=== PATIENT | female | born 1945 | race Caucasian/White ===

== ENCOUNTER → 2017-02-08 | Outpatient (CLI) | payer MEDICARE, BC ==
[2017-02-08 15:25] LABS: Blood Urea Nitrogen 11 mg/dL (7-17); Non-African American GFR(MDRD) >60 (>60 ml/min/1.73 sqM)
--- NOTE | 2017-02-10 10:23 | CT ---
EXAMINATION TYPE: CT angio abdomen pelvis DATE OF EXAM: 02/08/2017 COMPARISON: 11/24/2016 HISTORY: Leak of aortic bifurcation. CT DLP: 872.6 mGycm CONTRAST: CTA thoracic and abdominal aorta with 3-D reconstruction is performed without Oral Contrast and witho ut and with IV Contrast, patient injected with 100 mL of Omnipaque 350. Contrast CTA of the abdominal aorta was performed from the lung bases through the base of the pelvis. 3-D reconstruction imaging obtained at a separate workstation. Abdominal AORTA: Aortoiliac stent graft is again noted to be in place. At the site of prior endoleak there is been interval coiling. Endoleak is no longer visible. Stent graft is otherwise stable in [place]. Abdominal aortic aneurysm currently measures 6.2 cm x 6.4 cm versus 6.2 x 6.4 cm previously. Branch vessels are patent and well-perfused. LIVER/GB- No significant abnormality is seen. Cholecystectomy clips are in place. PANCREAS- No significant abnormality is seen. SPLEEN- No significant abnormality is seen. ADRENALS- No significant abnormality is seen. KIDNEYS/BLADDER- No significant abnormality is seen. BOWEL- No Significant abnormality GENITAL ORGANS: No gross abnormality seen. LYMPH NODES- No greater than 1cm abdominal or pelvic lymph nodes areappreciated. OSSEOUS STRUCTURES- No significant abnormality is seen. OTHER- No significant abnormality is seen. IMPRESSION- 1. Resolution of previously noted endoleak. No evidence for new endoleak. Aortic stent graft as noted .
== END | disposition home or self-care (01) ==
LOC: RADCTMAIN 14:24
PROVIDERS: ATTEND Physician Assistant
DX: T82.330D Leakage of aortic (bifurcation) graft (replacement), subsequent encounter (principal)
CPT/HCPCS: 82565; 84520; 36415; 74174; Q9967